=== PATIENT | male | born 1995 | race Two or more races ===

== ENCOUNTER 2017-02-06 12:58 | Emergency (ER) | payer OTHER ==
[2017-02-06 13:03] VITALS: BP 131/83; PULSE 116; TEMP 98.3; BMI 29.8
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
[2017-02-06] MEDS ORDERED: TETANUS AND DIPHTHERIA TOXOID 0.5 ML DISP.SYRIN IM ONE (14:00)
== END 2017-02-06 14:08 | disposition home or self-care (01) ==
LOC: JERFT 12:58
PROC: 3E0234Z Introduction of Serum, Toxoid and Vaccine into Muscle, Percutaneous Approach (ICD-10-PCS; principal; 2017-02-06)
DX: S61.012A Laceration without foreign body of left thumb without damage to nail, initial encounter (principal); W45.8XXA Other foreign body or object entering through skin, initial encounter; W22.8XXA Striking against or struck by other objects, initial encounter; Y93.89 Activity, other specified; Y92.89 Other specified places as the place of occurrence of the external cause
CPT/HCPCS: 90471; 90715; 99281-25